=== PATIENT | male | born 1990 | race Caucasian/White ===

== ENCOUNTER 2019-09-11 12:09 | Emergency (ER) | payer SELFPAY ==
[2019-09-11] MEDS ORDERED: KEFLEX500 M1 PO (13:21)
[2019-09-11] MEDS ORDERED: BACTRIM DS1 TAB PO (13:21)
[2019-09-11 13:30] VITALS: BP 128/80
== END 2019-09-11 13:30 | disposition home or self-care (01) | DRG 603 ==
LOC: ED 12:09
PROC: 0H9FXZZ Drainage of Right Hand Skin, External Approach (ICD-10-PCS; principal; 2019-09-11)
DX: L02.511 Cutaneous abscess of right hand (principal); B95.62 Methicillin resistant Staphylococcus aureus infection as the cause of diseases classified elsewhere